=== PATIENT | male | born 1990 | race African-American/Black ===

== ENCOUNTER 2020-08-25 13:19 | Emergency (ER) | payer OTHER ==
[2020-08-25 13:28] VITALS: BP 136/84; PULSE 87; TEMP 97.2; BMI 36.1
== END 2020-08-25 16:00 | disposition home or self-care (01) ==
LOC: JERFT 13:19
DX: M54.9 Dorsalgia, unspecified (principal)
CPT/HCPCS: 72070-TC-FY; 72100-TC-FY; 99284-25